=== PATIENT | male | born 1955 | race Caucasian/White ===

== ENCOUNTER 2016-07-31 06:00 | Day surgery (SDC) | payer OTHER ==
[2016-07-31] MEDS ORDERED: Ketamine HCl 50 MG/ML IV ONE (08:00)
[2016-07-31] MEDS ORDERED: DIPRIVAN 200 MG/20 ML IV ONE (08:00)
--- NOTE | 2016-07-31 08:24 | HP ---
PROCEDURE DATE: 07/31/16 HISTORY OF PRESENT ILLNESS: The patient is a 61 y/o gentleman who has had prior history of perforated diverticulitis. Failed to improve conservative treatment. He required operative colon resection and colostomy. PAST MEDICAL HISTORY: He has had chronic obstructive pulmonary disease as well as perforated diverticulitis. CURRENT MEDICATIONS: Has been on [employer], Zoloft, and Ambien. ALLERGIES: NKDA. PAST SURGICAL HISTORY: Had spleen surgery, gallbladder surgery. FAMILY HISTORY: Diabetes, cancer, heart disease. SOCIAL HISTORY: No smoking or alcohol abuse currently. Patient was originally seen by Dr. Serra from the [facility]. He failed to improve conservative management, so eventually, required operation resection. Bowel function returned. He was able to get out of the hospital. He was seen back in May for consideration of setting up ostomy takedown. However, he preferred to wait until August. Now, he is being set-up for colonoscopy to clear the proximal and distal limbs prior to considering ostomy takedown. REVIEW OF SYSTEMS: Otherwise, 10 systems reviewed per admission assessment. No chest pains or palpitations currently. Other systems negative or noncontributory other than above and per admission assessment. PHYSICAL EXAMINATION: GENERAL: No acute distress. HEENT: Sclerae nonicteric. NECK: No JVD. CHEST: Equal excursion. Nonlabored breathing. CVS: Regular rate and rhythm. ABDOMEN: Soft. Stoma is fine. Incision is okay. EXTREMITIES: No edema. NEURO: Alert, moving extremities symmetrically. IMPRESSION: 1. HISTORY OF PERFORATED DIVERTICULA STATUS POST DIVERTING OSTOMY AND RESECTION AND CLOSURE OF RECTAL STUMP. NOW, IN NEED OF ENDOSCOPY TO CLEAR THE COLON PROXIMALLY AND DISTALLY PRIOR TO CONSIDERING OSTOMY TAKEDOWN IN THE FUTURE. Risks and benefits explained in detail, but not limited to, bleeding; infection; small risk of bowel injury or perforation possibly requiring open procedure; risk of ongoing morbidity; small risk of missed or nondiagnosis or incomplete exam possibly requiring barium enema or other studies or procedures. He understands all the above and agrees to the planned procedure. Will proceed with colonoscopy as an outpatient.
[2016-07-31] MEDS ORDERED: Lactated Ringers 1,000 ML IV SCH (09:30)
[2016-07-31] MEDS ORDERED: Lactated Ringers 1,000 ML IV ONE (09:47)
[2016-07-31 12:20] VITALS: PULSE 61; O2SAT 95
[2016-07-31 12:21] VITALS: BP 116/65
--- NOTE | 2016-07-31 15:50 | OP ---
SURGERY DATE: 07/31/16 SURGERY TIME: 1055 PREOPERATIVE DIAGNOSIS: 1. HISTORY OF PERFORATED DIVERTICULITIS. 2. NEED FOR COLONOSCOPY PRIOR TO CONSIDERATION OF OSTOMY TAKEDOWN. POSTOPERATIVE DIAGNOSIS: 1. POOR BOWEL PREP LIMITING EXAM. 2. DIVERTICULOSIS. 3. SMALL INTERNAL/EXTERNAL HEMORRHOIDS. PROCEDURE: 1. Colonoscopy to terminal ileum with retrograde ileoscopy through ostomy. 2. Colonoscopy through anus to the rectosigmoid staple line stump with cold biopsy of vague raised area vs just mild inflammation near staple line. SURGEON: Dr. Darvin Rubio. ANESTHESIA: MAC. ESTIMATED BLOOD LOSS: Minimal. INDICATIONS: As noted above. Risks and benefits explained in detail, but not limited to. Consent obtained. DESCRIPTION OF PROCEDURE AND FINDINGS: The patient was taken to the OR. MAC anesthesia was induced. After official time-out, no disagreement in planned procedure. Digital rectal exam did not reveal any rectal masses. He did have some small internal/external hemorrhoids. Video colonoscope inserted and passed up through the poorly prepped rectum. A large amount of mucus balls and some stool balls. The scope was carefully navigated up to about 20 cm or so from the anal verge. Staple line was noted at 19-20 cm from the anal verge. There was 1 small vague raised area there. Whether this was just some reaction from the surgery in the past and inflammation, cold biopsy taken. Good hemostasis noted. Otherwise, there were no signs of any large polyps, masses, or obstructing lesions. Again, the poor prep and the mucus ball limiting the exam slightly. Some small internal/external hemorrhoids. The scope was slowly carefully withdrawn. The patient tolerated this portion of the procedure well. At this point, the scope was then advanced through the ostomy in the left lower quadrant carefully up through the descending and transverse colon slowly, carefully around the ascending colon to the terminal ileum and then the scope was able to be passed up the terminal ileum. Retrograde ileoscopy was performed. Toe nails grossly unremarkable. The scope was slowly carefully withdrawn. The prep overall was poor. There was a large amount of liquidy, semisolid stool limiting the exam for potentially small lesions. The scope was slowly, carefully withdrawn. There was some mild diverticulosis. Otherwise, there were no signs of any large polyps, masses, or obstructing lesions on withdrawal of the scope. The patient tolerated the procedure well. There were no immediate complications. Findings discussed with the family out in the waiting area.
== END 2016-07-31 12:24 | disposition home or self-care (01) ==
LOC: SDC 06:00
PROVIDERS: ATTEND Surgery
PROC: 0DJD8ZZ Inspection of Lower Intestinal Tract, Via Natural or Artificial Opening Endoscopic (ICD-10-PCS; principal; 2016-07-31)
PROC: 0DBP8ZX Excision of Rectum, Via Natural or Artificial Opening Endoscopic, Diagnostic (ICD-10-PCS; 2016-07-31)
PROC: 0DBN8ZX Excision of Sigmoid Colon, Via Natural or Artificial Opening Endoscopic, Diagnostic (ICD-10-PCS; 2016-07-31)
DX: K57.90 Diverticulosis of intestine, part unspecified, without perforation or abscess without bleeding (principal); K64.4 Residual hemorrhoidal skin tags; K64.8 Other hemorrhoids; Z93.3 Colostomy status; J44.9 Chronic obstructive pulmonary disease, unspecified
CPT/HCPCS: 00810; 36415; 88305; J2704

== ENCOUNTER 2022-04-14 06:06 | Day surgery (SDC) | payer MEDICARE ==
[2022-04-14] MEDS ORDERED: Lactated Ringers 1,000 ML IV SCH (06:30)
[2022-04-14 06:59] VITALS: O2SAT 99
[2022-04-14] MEDS ORDERED: Ephedrine Sulfate 50 MG/ML ONE (07:46)
[2022-04-14] MEDS ORDERED: DIPRIVAN 200 MG/20 ML IV ONE (07:46)
--- NOTE | 2022-04-14 09:20 | OP ---
SURGERY DATE/TIME: 04/14/2022 4230 PREOPERATIVE DIAGNOSIS: Screening exam. POSTOPERATIVE DIAGNOSIS: Mild sigmoid diverticulosis otherwise normal appearing colon. PROCEDURE: Colonoscopy. SURGEON: Dr. Reyes Gusman. ANESTHESIA: MAC. Medications given by anesthesia department. HISTORY: The patient is a 67-year-old white male patient who has a history of diverticulosis and had actually diverted colostomy. He has also had bladder cancer. His bladder has been removed along with his prostate. The patient had reanastomosis performed later. The patient reports he had a colonoscopy four years ago due to colostomy at that time. The patient reports no history of any polyps or colon cancer. The patient is felt the need to have endoscopic evaluation. He was appraised of the risks of the procedure including the risk of perforation, phlebitis, untoward reaction to medication, bleeding and missed lesions. The patient verbalized his understanding and desired to have the procedure performed. DESCRIPTION OF PROCEDURE: The patient was given the medications by the anesthesia department. He had continuous pulse oximetry, ECG monitoring, intermittent blood pressure monitoring during the examination. He was placed in the left lateral decubitus position. A digital rectal examination was performed and revealed normal anal sphincter tone, no masses and absence of the prostate was noted. The flexible Olympus pediatric colonoscope was used to intubate the rectum. A view of the colon was developed sequentially to the cecum. Upon insertion and withdrawal there were no mucosal lesions noted other than scattered sigmoid diverticula. The scope was removed from the patient who tolerated the procedure well and was sent back to outpatient recovery in good condition. The prep was noted to be fair to good.
[2022-04-14 09:56] VITALS: BP 121/90; PULSE 69
== END 2022-04-14 08:55 | disposition home or self-care (01) ==
LOC: SDC 06:06
PROVIDERS: ATTEND Family Medicine
DX: Z12.11 Encounter for screening for malignant neoplasm of colon (principal); Z87.19 Personal history of other diseases of the digestive system; Z85.51 Personal history of malignant neoplasm of bladder; K57.30 Diverticulosis of large intestine without perforation or abscess without bleeding
CPT/HCPCS: J2704